=== PATIENT | male | born 1995 | race Caucasian/White ===

== ENCOUNTER 2016-11-21 18:57 | Emergency (ER) | payer OTHER ==
[~2016-11-21] VITALS: Ht 188 cm; Wt 106.3 kg
[2016-11-21 19:02] VITALS: TEMP 37.7; Ht 188 cm; Wt 106.3 kg
--- NOTE | 2016-11-21 19:29 | DIAGNOSTIC IMAGING REPORT ---
LEFT ANKLE MIN 3 VIEWS ROUTINE CLINICAL HISTORY: 21 years-old Male presenting with twisted left ankle, pain. TECHNIQUE: Frontal, mortise, and lateral views of the left ankle were obtained. COMPARISON: None. FINDINGS: Ankle mortise intact. No acute fracture or subluxation. No significant soft tissue swelling. No degenerative change. IMPRESSION: No acute osseous injury of the left ankle. Electronically signed by: Topher Veliz M.D. 11/21/2016 7:28 PM Dictated Date/Time: 11/21/2016 7:26 PM
[2016-11-21 20:01] VITALS: BP 131/59
[2016-11-21 20:06] VITALS: PULSE 71; O2SAT 100
--- NOTE | 2016-11-22 01:39 | EMERGENCY ROOM VISIT NOTE ---
History Report prepared by Vaishali: Genet Driscoll Under the Supervision of: Dr. Erickson Joel D.O. First contact with patient: 18:59 Stated Complaint: ANKLE PAIN History of Present Illness The patient is a 21 year old male who presents to the Emergency Room with complaints of persistent left ankle pain starting 50 minutes ago. The patient rolled his ankle over someone else's leg. He heard and felt popping from his ankle. He rolled his ankle inwards. He has pain mostly on the outside of his ankle. He has some tingling in his left ankle. He denies any head injury or LOC. He denies any other pain or injury. He has 2 titanium plates in his orbital bone. He denies any other medical problems. Source of History: patient Onset: 50 minutes ago Position: ankle (left) Quality: other (injury pain) Timing: other (persistent) Associated Symptoms: No LOC Note: Pt denies head injury, other injury. Review of Systems See HPI for pertinent positives & negatives. A total of 10 systems reviewed and were otherwise negative. Past Medical & Surgical Medical Problems: (1) No chronic problems Family History No pertinent family history stated. Social History Occupation Status: [employer] student Current/Historical Medications No Active Prescriptions or Reported Meds Allergies Coded Allergies: No Known Allergies (Unverified , 11/21/16) Physical Exam Vital Signs Date Time Temp Pulse Resp B/P (MAP) Pulse Ox O2 Delivery O2 Flow Rate FiO2 11/21/16 20:06 71 100 11/21/16 20:01 131/59 11/21/16 19:52 77 18 99 11/21/16 19:37 85 99 11/21/16 19:31 139/80 11/21/16 19:22 88 98 11/21/16 19:17 90 20 100 Room Air 11/21/16 19:07 144/81 11/21/16 19:02 37.7 94 22 144/81 99 Room Air Physical Exam GENERAL: sitting up in bed, disheveled, minimal distress HEAD: normal cephalic, atraumatic EYE EXAM: normal conjunctiva, PERRL and EOM's grossly intact OROPHARYNX: no exudate, no erythema, lips, buccal mucosa, and tongue normal and mucous membranes are moist NECK: supple, no nuchal rigidity, no adenopathy, non-tender CHEST: stable to compression anteriorly and posteriorly LUNGS: clear to auscultation. Normal chest wall mechanics HEART: no murmurs, S1 normal and S2 normal ABDOMEN: abdomen soft, non-tender, normo-active bowel sounds, no masses, no rebound or guarding. PELVIS: stable to compression anteriorly and posteriorly UPPER EXTREMITIES: full active and passive range of motion of all joints without tenderness to palpation LOWER EXTREMITIES: full active and passive range of motion of all joints without tenderness to palpation except the left ankle. Swelling on the medial and lateral aspect of the left ankle with tenderness to palpation, no tenderness over the base of 5th metatarsal or through arch of the foot, DP and PT pulses 2/4, gross sensation intact, Achilles intact, pain with plantar and dorsal flexion. NEURO EXAM: Normal sensorium. Medical Decision & Procedures ER Provider Diagnostic Interpretation: Radiology results as stated below per my review and the radiologist's interpretation: LEFT ANKLE MIN 3 VIEWS ROUTINE CLINICAL HISTORY: 21 years-old Male presenting with twisted left ankle, pain. TECHNIQUE: Frontal, mortise, and lateral views of the left ankle were obtained. COMPARISON: None. FINDINGS: Ankle mortise intact. No acute fracture or subluxation. No significant soft tissue swelling. No degenerative change. IMPRESSION: No acute osseous injury of the left ankle. Electronically signed by: Topher Veliz M.D. 11/21/2016 7:28 PM Dictated Date/Time: 11/21/2016 7:26 PM ED Course ED COURSE: Vital signs were reviewed and showed normal vitals. The patients medical record was reviewed The above diagnostic studies were performed and reviewed. ED treatments and interventions as stated above. 1900: The patient was evaluated in room C10. A complete history and physical examination was performed. 2004: Upon reevaluation, the patient is doing well. I discussed my findings with the patient and he understands and agrees with the treatment plan. I instructed him not to drive. Based on the patients age, coexisting illnesses, exam and lab findings the decision to treat as an outpatient was made. The patient remained stable while under my care. The patient appeared well at the time of discharge. Medical Decision Differential diagnoses include major intracranial, cervical, spinal, thoracic, abdominal, pelvic and neurologic injury. Fracture, contusion, sprain, strain, laceration, abrasions included as well. Patient is a 21-year-old male that presents the ER for left ankle pain via EMS. On exam he does have some mild swelling. He simply neurovascularly intact. X -rays of the ankle show no fractures. He has no tenderness within the foot or the proximal tibia-fibula. Patient was given an ankle splint and crutches. He was discharged nonweightbearing the follow-up with orthopedics if his pain persists for the next 5 days. Discussed with Pt concerning signs and symptoms to watch out for. Pt was instructed to follow up with their PCP and discussed with the patient their option to return to the ED at anytime for persistent or worsening symptoms. The appropriate anticipatory guidance and out-patient management, including indications for return to the emergency department, were explained at length to the patient and understood. Medication Reconcilliation Current Medication List: was personally reviewed by me Blood Pressure Screening Patient's blood pressure: Normal blood pressure Blood pressure disposition: Did not require urgent referral Impression Primary Impression: Left ankle sprain Scribe Attestation The scribe's documentation has been prepared under my direction and personally reviewed by me in its entirety. I confirm that the note above accurately reflects all work, treatment, procedures, and medical decision making performed by me. Departure Information Dispostion Home / Self-Care Prescriptions No Active Prescriptions or Reported Meds Referrals No Doctor, Assigned Leonel Schultz, DO Forms HOME CARE DOCUMENTATION FORM, IMPORTANT VISIT INFORMATION Patient Instructions Ankle Sprain, My [facility] Additional Instructions Please follow up with your primary care doctor or if you are a student, [facility] with in the next 24 hours. Please use crutches and do not bear weight until your pain has completely resolved. If you continue to have pain over the next 5 days he will need repeat x-rays and need to follow up with orthopedics as listed below. Please take Motrin or Tylenol as needed for pain. Please do not bear weight on the ankle to the pain has completely resolved. Do not drive for the remainder of the day. Problem Qualifiers Primary Impression: Left ankle sprain Encounter type: initial encounter Involved ligament of ankle: unspecified ligament Qualified Codes: S93.402A - Sprain of unspecified ligament of left ankle, initial encounter
== END 2016-11-21 20:23 | disposition home or self-care (01) ==
LOC: C.EDC 18:59
DX: S93.402A Sprain of unspecified ligament of left ankle, initial encounter (principal); X50.0XXA Overexertion from strenuous movement or load, initial encounter